=== PATIENT | male | born 1945 | race Caucasian/White ===

== ENCOUNTER 2016-12-25 22:58 | Emergency (ER) | payer MEDICARE | END 2016-12-26 02:39 | LOC: ERS 22:58 | DX: R53.1 Weakness (principal); E11.9 Type 2 diabetes mellitus without complications; I10 Essential (primary) hypertension; Z87.891 Personal history of nicotine dependence; Z86.73 Personal history of transient ischemic attack (TIA), and cerebral infarction without residual deficits; Z79.899 Other long term (current) drug therapy | CPT/HCPCS: 96360 ==

== ENCOUNTER 2019-10-19 20:01 | Inpatient (IN) | payer MEDICARE, OTHER ==
[2019-10-19 22:52] VITALS: BMI 27.1
[2019-10-19] MEDS ORDERED: Acetaminophen 325 MG TAB PO PRN (23:18)
[2019-10-19] MEDS ORDERED: Ondansetron ODT 4 MG TAB PO PRN (23:18)
[2019-10-19] MEDS ORDERED: Senokot S 8.6-50 MG TAB PO PRN (23:18)
[2019-10-19] MEDS ORDERED: Calcium Carbonate 500 MG ChewTAB PO PRN (23:18)
[2019-10-19] MEDS ORDERED: Docusate 100 MG CAP PO PRN (23:20)
[2019-10-19] MEDS ORDERED: predniSONE 20 MG TAB PO SCH (23:45)
[2019-10-19] MEDS ORDERED: Cefepime 1 GM in Sodium Chloride 0.9% 100 ML IVPB SCH (23:59)
[2019-10-19] MEDS ORDERED: Vancomycin 1.5 GRAM/300 ML BAG 1.5 GM in Premix Bag 1 BAG IVPB SCH (23:59)
[2019-10-20] MEDS: Sodium Chloride 0.9% 1,000 ML IV SCH ×2 (00:01→15:49)
--- NOTE | 2019-10-20 00:26 | HP ---
PRIMARY CARE PHYSICIAN: Dr. Shi. CHIEF COMPLAINT: Generalized weakness and deconditioning. HISTORY OF PRESENT ILLNESS: The patient is a poor historian and the majority of the H and P was taken from the [facility] via telephone. 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 The patient was recently discharged home with home heatlh one week ago after spending three weeks in the hospital. Per the patient's POA, he has been sitting in a chair at home, refusing home health for the past week. He has been soiling himself in the chair that he sits in all day with his urine and feces. He has decreased appetite. He has not been eating much. She denies any recent or known fever or chills. Denies any chest pain, heart palpitations, swelling to his lower extremities. Denies any known abdominal pain, nausea, vomiting, or diarrhea. Denies any urinary symptoms. She does report that the patient has a history of gout and he has had a gout exacerbation for the last several days contributing to his unwillingness to get up and ambulate. For those reasons, the neighbor took the patient to the ER. In the [place] [facility], the patient was found to have a fever of 102.7 with a normal blood pressure, normal pulse, normal respiratory rate, and normal oxygen saturation. He was found to have WBCs of 12.2, BUN of 45, creatinine of 1.48, and lactic acid of 2.1. Urine showed 30 protein, trace blood, and 1+ amorphous crystals. Chest x- ray was negative for any acute process. On exam, he was found to have a decubitus ulcer on his left buttock, which could be the source of the fever. The patient was given vancomycin and cefepime and 30 mL/kg of normal saline IV fluids and transferred to the [facility]. PAST MEDICAL HISTORY: 1. Hypertension. 2. Diabetes type 2, non-insulin dependent. 3. Gout. 4. 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 PAST SURGICAL HISTORY: None. SOCIAL HISTORY: The patient lives alone at home. Drinks alcohol, 4 beers, approximately 3 times a week. Last drink was greater than three weeks ago. He is a former smoker, quit greater than 10 years ago. No illicit drug use. He is retired. He will ambulate with a roller walker. FAMILY HISTORY: Noncontributory to the case. ALLERGIES: NO KNOWN DRUG ALLERGIES. MEDICATIONS: Home medications; 1. Lisinopril 20 mg p.o. daily. 2. Allopurinol 100 mg p.o. at bedtime. 3. Atenolol 100 mg p.o. daily. 4. Atorvastatin 40 mg p.o. daily. 5. Docusate 100 mg p.o. b.i.d. 6. Gabapentin 400 mg p.o. t.i.d. 7. Hydralazine 25 mg p.o. t.i.d. REVIEW OF SYSTEMS: All review of systems are negative unless otherwise stated in HPI. PHYSICAL EXAMINATION: VITAL SIGNS: Temperature 97.7, blood pressure 148/74, pulse 74, respirations 18 , and SpO2 is 99% on room air with 0/10 pain. CONSTITUTIONAL: The patient is alert and oriented to person, place, and time. Appears comfortable in bed, nontoxic in appearance. HEAD: Atraumatic and normocephalic. EYES: PERRLA. Extraocular muscles intact. NECK: Full range of motion. No cervical spinous tenderness. No JVD. No cervical adenopathy. ENT: Oropharynx clear. Uvula midline. Tacky mucous membranes. No oral lesions. RESPIRATORY/CHEST: Respirations even and nonlabored. Clear to auscultation. CARDIOVASCULAR: S1, S2 appreciated. No murmurs, rubs, or gallops. ABDOMEN: Soft, nontender. Active bowel sounds. No guarding. No rigidity. No rebound. Negative Rovsing sign negative. Negative Orr sign. No abdominal bruit auscultated. BACK: Full range of motion. No central spinous tenderness. No CVA tenderness. EXTREMITIES: Upper extremities; left upper extremity, mildly red, mild swelling , mildly painful to touch. No open lesions. Palpable radial pulses. Full range of motion. Sensation intact. Strength is weak, 4/5 on the power scale. Right upper extremity is normal. Lower extremity; left leg, decreased range of motion. Strength 4/5 on the power scale. Sensation intact. Left great toe, mild erythema, very tender to touch. Palpable pedal pulses. No swelling. SKIN: There is a 1 cm stage II pressure ulcer to the left buttock, intertriginous to the scrotum, and a stage I pressure sore to the sacrum. NEUROLOGIC: A and O x3 with slurred speech and left-sided weakness, which is baseline for the patient from his previous CVA in 2003. PSYCHIATRIC: Normal affect. A and O x3. LABS AND DIAGNOSTICS: Chest x-ray; negative for any acute process. Sodium 141, potassium 3.8, chloride 104, carbon dioxide 23, BUN 45, creatinine 1.48, glucose 109, lactic acid 2.1, total bilirubin 1.3, AST 14, ALT 14, alkaline phosphatase 92, and albumin 3.8. WBCs 12.2, hemoglobin 13.7, hematocrit 44.2, and platelets 246. UA, urine protein 30, trace blood, 1+ amorphous crystals. IMPRESSION AND PLAN: 1. Sepsis. We will admit the patient to medical floor inpatient status. Expected length of stay greater than two midnights. The patient presented to [place] [facility] with a fever of 102.7. WBCs of 12.2 and a lactic acid of 2.1. He does have a decubitus ulcer on his left buttock. We will continue broad-spectrum antibiotics, vancomycin and cefepime. The patient received 30 mL/kg of IV fluids. We will continue gentle IV hydration. Blood cultures and urine cultures are pending. We will repeat a lactic acid. We will consult Wound Care. We will recheck a CMP and a CBC in the a.m. 2. Decubitus ulcer. The patient has stage II on the left buttock. We will consult Wound Care therapy. 3. Acute kidney injury. The patient presented with a creatinine of 1.48, baseline appears to be around 1. We will hold MARIAELENA inhibitors, give IV fluid hydration, recheck level in the a.m. 4. Gout flare. The patient has a history of gout, takes allopurinol. Currently , he is having a gout flare to his left great toe and left upper extremity. We will start the patient on high-dose prednisone for 5 days. 5. Diabetes type 2, non-insulin dependent. The patient presented with a blood sugar of 109. We will place the patient on moderate sliding scale. Accu-Cheks a.c. and at bedtime. 6. Hypertension. The patient presented with a mildly elevated blood pressure. We will hold the patient's home dose of MARIAELENA inhibitor. We will restart the patient 's atenolol and hydralazine. 7. Alcohol abuse. The patient reports drinking 4 to 5 beers three times a week. Last drink was over 3 weeks ago according to his POA. At this time, no concern for any withdrawals. We will just continue to monitor. We will community health counselor on alcohol cessation. 8. Physical deconditioning. Per the POA, the patient has been refusing home health since being discharged from the hospital over the past week. He spent over 3 weeks in the hospital. He has been sitting in his chair, refusing to ambulate and soiling himself. His gout flare has contributed to this. She is very concerned about his deconditioned status and he lives alone and she does not feel like he is going to be safe to go home until he gets his strength back. We will consult Physical Therapy, Occupational Therapy. The patient will most likely need rehab or higher level of care on discharge. We will consult Case Management. 9. Heparin for deep venous thrombosis prophylaxis. Pepcid for gastrointestinal prophylaxis. 10. The patient is a DNR, confirmed by Ann Blue, his POA via phone. Her number is [phone]. 11. Discussed the case with Dr. Moreland. Job ID: [id number] MTDD
[2019-10-20 00:31] LABS: Lactic Acid 0.9 mmol/L (0.5-2.2)
[2019-10-20 05:50] LABS: #Lymphocytes 1.1 thou/uL (1.20-3.40); #Monocytes 0.4 thou/uL (0.11-0.59); %Basophils 0.3 % (0.0-1.0); %Eosinophils 0.3 % (0.0-10.0); %Lymphocytes 10.7 % (21.0-51.0); %Monocytes 3.6 % (0.0-10.0); %Neutrophils 85.1 % (42.0-75.0); Hemoglobin 12.7 g/dL (14.0-18.0); Mean Corpuscular HGB CONC 32.4 g/dL (32.0-36.0); Mean Corpuscular Hemoglobin 30.5 pg (27.0-31.0); Mean Corpuscular Volume 94.3 fL (78.0-98.0); Mean Platelet Volume 7.8 fL (7.4-10.4); Platelet Count 214 thou/uL (130-400); RBC Distribution Width 12.8 % (11.5-14.5); Red Blood Cell (RBC) Count 4.15 mill/uL (4.70-6.10); White Blood Cell (WBC) Count 10.6 thou/uL (4.8-10.8)
[2019-10-20 06:10] LABS: Anion Gap 13 mmol/L (10-20); BUN (Urea Nitrogen) 40 mg/dL (8.4-25.7); Calc. Creatinine Clearance 62 mL/min (70-130); Calcium 8.8 mg/dL (7.8-10.44); Carbon Dioxide 21 mmol/L (23-31); Chloride 110 mmol/L (98-107); Estimated GFR-MDRD 63; Glucose 144 mg/dL (83-110); Potassium 3.5 mmol/L (3.5-5.1); Sodium 140 mmol/L (136-145)
[2019-10-20] MEDS ORDERED: Vancomycin HCl 750 MG in Sodium Chloride 0.9% 250 ML 250 ML IVPB SCH (09:00)
[2019-10-20] MEDS: Famotidine 20 MG TAB PO SCH (09:18)
[2019-10-20] MEDS: hydrALAZINE 25 MG TAB PO SCH ×3 (09:18→20:29)
[2019-10-20] MEDS: predniSONE 20 MG TAB PO SCH (09:18)
[2019-10-20] MEDS: Gabapentin 400 MG CAP PO SCH ×3 (09:19→20:29)
[2019-10-20] MEDS: Vancomycin 1 GM in Premix Bag 1 BAG IVPB SCH (09:19)
[2019-10-20] MEDS: Heparin 5,000 UNITS/ML VIAL SC SCH ×2 (09:19→20:30)
[2019-10-20] MEDS: Atorvastatin Calcium 40 MG TAB PO SCH (09:19)
[2019-10-20] MEDS: HYDROcodone/Acetaminophen 5/325 mg Tablet PO PRN ×2 (12:02→20:29)
[2019-10-20] MEDS: Atenolol 50 MG TAB PO SCH (12:04)
[2019-10-20] MEDS ORDERED: Cefepime 1 GM in Sodium Chloride 0.9% 100 ML IVPB SCH (15:00)
--- NOTE | 2019-10-20 17:23 | PDOC.HOSPP ---
- Subjective Encounter Date: 10/20/19 Encounter Time: 08:00 Subjective: no overnight events. this morning, complains of pain in the lower extremities right > left that is chronic. Otherwise no complaints. - Objective Vital Signs & Weight: Vital Signs (12 hours) Temp Pulse Resp BP BP Pulse Ox 10/20/19 12:04 61 132/78 10/20/19 09:18 61 132/78 10/20/19 08:00 96 10/20/19 07:21 97.6 F 61 20 132/78 97 Weight Admit Weight 173 lb 2 oz Weight 173 lb 2 oz I&O: 10/19/19 10/20/19 10/21/19 06:59 06:59 06:59 Intake Total 850 Output Total 1300 Balance -450 Result Diagrams: 10/20/19 05:35 10/20/19 05:35 Hospitalist ROS - Review of Systems Constitutional: denies: chills, sweats Cardiovascular: denies: chest pain, palpitations, orthopnea Gastrointestinal: denies: nausea, vomiting, abdominal pain - Medication Medications: Active Medications Generic Name Dose Route Start Last Admin Trade Name Freq PRN Reason Stop Dose Admin Hydrocodone Bitart/Acetaminophen 1 tab 10/19/19 23:18 10/20/19 12:02 [place] 5/325 PO 1 tab Q4H PRN Administration Moderate Pain (4-6) Atenolol 100 mg 10/20/19 09:00 10/20/19 12:04 Tenormin PO 100 mg DAILY SAULO Administration Atorvastatin Calcium 40 mg 10/20/19 09:00 10/20/19 09:19 Lipitor PO 40 mg DAILY SAULO Administration Famotidine 20 mg 10/20/19 09:00 10/20/19 09:18 Pepcid PO 20 mg DAILY SAULO Administration Gabapentin 400 mg 10/20/19 09:00 10/20/19 15:49 Neurontin PO 400 mg TID SAULO Administration Heparin Sodium (Porcine) 5,000 units 10/20/19 09:00 10/20/19 09:19 Heparin SC 5,000 units BID SAULO Administration Hydralazine HCl 25 mg 10/20/19 09:00 10/20/19 15:49 Apresoline PO 25 mg TID SAULO Administration Sodium Chloride 1,000 mls @ 75 mls/hr 10/19/19 23:30 10/20/19 15:49 Normal Saline 0.9% IV 1,000 mls .[id number] SAULO Administration Cefepime HCl 1 gm/ Sodium 100 mls @ 200 mls/hr 10/20/19 15:00 10/20/19 15:49 Chloride IVPB 100 mls 1500 SAULO Administration Vancomycin HCl 1 gm/ Device 200 mls @ 200 mls/hr 10/20/19 09:00 10/20/19 09: 19 IVPB 200 mls DAILY SAULO Administration Prednisone 40 mg 10/20/19 08:00 10/20/19 09:18 Prednisone PO 10/23/19 09:00 40 mg QAM-WM SAULO Administration - Exam General Appearance: NAD, awake alert Neck: no JVD Heart: RRR, no murmur, no gallops, no rubs Respiratory: CTAB, no wheezes, no rales, no ronchi Gastrointestinal: soft, non-tender, non-distended, normal bowel sounds Extremities: 1+ LE edema Extremities - other findings: moderate tenderness left first toe, tenderness and erythema right crowder Hosp A/P - Plan #generalized weakness -has been immobile for the past month -infectious, DVT, deconditining, dehydration possible etiologies qSOFA 0/3 continue vancomycin, cefepime pending infectious workup lower extremity U/S procalcitonin #noninfected decubitus ulcer #Acute kidney injury (resolved) # Gout flare. left great toe. Continue steroids #Diabetes type 2, non-insulin dependent. Well controlled # Hypertension. restart home regimen.
[2019-10-20] MEDS ORDERED: Acetaminophen 500 MG TAB PO PRN (17:39)
[2019-10-20] MEDS ORDERED: Vancomycin 1 GM in Premix Bag 1 BAG IVPB SCH (18:00)
--- NOTE | 2019-10-20 18:49 | ULT ---
EXAM: Bilateral lower extremity venous Doppler HISTORY: Bilateral lower extremity swelling/edema. Immobility. FINDINGS: Grayscale, color-flow, Doppler evaluation, spectral analysis of the bilateral lower extremity venous structures is performed with 2-D imaging. The bilateral common femoral, superficial femoral, popliteal, posterior tibial, proximal greater saphenous and profunda femoral veins are imaged. There is normal luminal compressibility, flow, and augmentation in the visualized deep venous structu res of the bilateral lower extremities. IMPRESSION: No evidence of a deep vein thrombosis in the visualized deep venous structures bilateral lower extrem ities.
[2019-10-20] MEDS: Allopurinol 100 MG TAB PO SCH (20:29)
[2019-10-21] MEDS: Sodium Chloride 0.9% 1,000 ML IV SCH ×4 (04:07→23:35)
[2019-10-21 06:22] LABS: #Basophils 0.1 thou/uL (0.0-0.2); #Lymphocytes 1.6 thou/uL (1.20-3.40); #Monocytes 0.8 thou/uL (0.11-0.59); %Basophils 0.5 % (0.0-1.0); %Eosinophils 0.3 % (0.0-10.0); %Lymphocytes 15.4 % (21.0-51.0); %Monocytes 7.7 % (0.0-10.0); %Neutrophils 76.1 % (42.0-75.0); Hemoglobin 11.5 g/dL (14.0-18.0); Mean Corpuscular HGB CONC 31.9 g/dL (32.0-36.0); Mean Corpuscular Hemoglobin 30.3 pg (27.0-31.0); Mean Corpuscular Volume 95.2 fL (78.0-98.0); Mean Platelet Volume 8.7 fL (7.4-10.4); Platelet Count 220 thou/uL (130-400); RBC Distribution Width 12.6 % (11.5-14.5); Red Blood Cell (RBC) Count 3.77 mill/uL (4.70-6.10); White Blood Cell (WBC) Count 10.5 thou/uL (4.8-10.8)
[2019-10-21 06:49] LABS: Anion Gap 11 mmol/L (10-20); BUN (Urea Nitrogen) 52 mg/dL (8.4-25.7); Calc. Creatinine Clearance 57 mL/min (70-130); Calcium 8.7 mg/dL (7.8-10.44); Carbon Dioxide 21 mmol/L (23-31); Chloride 113 mmol/L (98-107); Estimated GFR-MDRD 58; Glucose 118 mg/dL (83-110); Magnesium 1.7 mg/dL (1.6-2.6); Potassium 3.4 mmol/L (3.5-5.1); Sodium 142 mmol/L (136-145)
[2019-10-21] MEDS: predniSONE 20 MG TAB PO SCH (08:00)
[2019-10-21] MEDS: Atenolol 50 MG TAB PO SCH (08:00)
[2019-10-21] MEDS: Lisinopril 20 MG TAB PO SCH (08:00)
[2019-10-21] MEDS: Famotidine 20 MG TAB PO SCH (08:00)
[2019-10-21] MEDS: Atorvastatin Calcium 40 MG TAB PO SCH (08:01)
[2019-10-21] MEDS: hydrALAZINE 25 MG TAB PO SCH ×3 (08:01→20:51)
[2019-10-21] MEDS: Gabapentin 400 MG CAP PO SCH ×3 (08:02→20:50)
[2019-10-21] MEDS: Heparin 5,000 UNITS/ML VIAL SC SCH ×2 (08:02→20:50)
[2019-10-21] MEDS: HYDROcodone/Acetaminophen 5/325 mg Tablet PO PRN (08:02)
[2019-10-21] MEDS ORDERED: Vancomycin 1.5 GRAM/300 ML BAG 1.5 GM in Premix Bag 1 BAG IVPB SCH (09:00)
[2019-10-21 09:12] LABS: Vancomycin, Trough 7.5 ug/mL
[2019-10-21] MEDS: Vancomycin 1 GM in Premix Bag 1 BAG IVPB SCH (10:34)
[2019-10-21 14:47] LABS: SARS-CoV-2 MS2 Positive; SARS-CoV-2 N Gene Negative; SARS-CoV-2 S Gene Negative; SARS-CoV-2 by NAA Not Detected (NotDetected); SARS-CoV-2 orf1ab Negative
[2019-10-21] MEDS ORDERED: Electrolyte Replacement Protoc 1 EACH EACH FS SCH (17:45)
--- NOTE | 2019-10-21 17:46 | PDOC.HOSPP ---
- Subjective Encounter Date: 10/21/19 Encounter Time: 08:00 Subjective: no overnight events. this morning, feels more energized and has no complaints with exception of lower extremity pain that has improved. - Objective Vital Signs & Weight: Vital Signs (12 hours) Temp Pulse Resp BP BP Pulse Ox 10/21/19 15:08 51 L 148/72 H 10/21/19 08:00 97.5 F L 51 L 16 137/71 100 Weight Admit Weight 173 lb 2 oz Weight 173 lb 2 oz I&O: 10/20/19 10/21/19 10/22/19 06:59 06:59 06:59 Intake Total 850 1750 Output Total 1300 1000 Balance -450 750 Result Diagrams: 10/21/19 05:51 10/21/19 05:51 Hospitalist ROS - Review of Systems Constitutional: denies: chills, sweats Respiratory: denies: cough, dry, shortness of breath Cardiovascular: denies: chest pain, palpitations Gastrointestinal: denies: nausea, vomiting, abdominal pain, diarrhea, melena, hematochezia Genitourinary: denies: dysuria, frequency, hematuria Neurological: reports: weakness (nonfocal, improving) - Medication Medications: Active Medications Generic Name Dose Route Start Last Admin Trade Name Freq PRN Reason Stop Dose Admin Hydrocodone Bitart/Acetaminophen 1 tab 10/19/19 23:18 10/21/19 08:02 [place] 5/325 PO 1 tab Q4H PRN Administration Moderate Pain (4-6) Allopurinol 100 mg 10/20/19 21:00 10/20/19 20:29 Zyloprim PO 100 mg 2100 SAULO Administration Atenolol 100 mg 10/20/19 09:00 10/21/19 08:00 Tenormin PO 100 mg DAILY SAULO Administration Atorvastatin Calcium 40 mg 10/20/19 09:00 10/21/19 08:01 Lipitor PO 40 mg DAILY SAULO Administration Docusate Sodium 100 mg 10/19/19 23:20 10/20/19 20:29 Colace PO 100 mg BIDPRN PRN Administration Constipation Famotidine 20 mg 10/20/19 09:00 10/21/19 08:00 Pepcid PO 20 mg DAILY SAULO Administration Gabapentin 400 mg 10/20/19 09:00 10/21/19 15:07 Neurontin PO 400 mg TID SAULO Administration Heparin Sodium (Porcine) 5,000 units 10/20/19 09:00 10/21/19 08:02 Heparin SC 5,000 units BID SALUO Administration Hydralazine HCl 25 mg 10/20/19 09:00 10/21/19 15:08 Apresoline PO 25 mg TID SAULO Administration Lisinopril 20 mg 10/21/19 09:00 10/21/19 08:00 Zestril PO 20 mg DAILY SAULO Administration Prednisone 40 mg 10/20/19 08:00 10/21/19 08:00 Prednisone PO 10/23/19 09:00 40 mg QAM-WM SAULO Administration - Exam General Appearance: NAD, awake alert Neck: no JVD Heart: no murmur, no gallops, no rubs Heart - other findings: bradycardic Gastrointestinal: soft, non-tender, non-distended, normal bowel sounds Extremities: 1+ LE edema Neurological - other findings: dysarhtria, left sided weakness (chronic) Psychiatric: normal affect, normal behavior, A&O x 3 Hosp A/P - Plan Consults: Hospice #generalized weakness #fever -improved -infectious workup -ve; procalcitonin 0.5; unlikely bacterial infection; stopped ABx -LE doppler -ve for DVT -increased BUN despite being on fluids; HgB lower; repeat CBC if HgB downtrending take FOBT -may have been viral syndrome vs. symptomatic bradycardia #bradycardia -per patient, has had slow heart rate for years -initial tachycardia may have been due to dehydration/anemia -however, may be related to symptoms; HR 50s -repeat EKG showing LBBB (old) with no AV conduction block; no other changes. -troponin; echocardio -reduce atenolol to 50mg PO daily - continue to monitor #noninfected stage II decubitus ulcer -wound management #Acute kidney injury (resolved) # Gout flare. left great toe. Continue steroids #Diabetes type 2, non-insulin dependent. Well controlled # Hypertension. restart home regimen.
[2019-10-21 19:08] LABS: CKMB 1.7 ng/mL (0-6.6)
[2019-10-21] MEDS: Allopurinol 100 MG TAB PO SCH (20:50)
--- NOTE | 2019-10-22 01:25 | PDOC.EVN ---
Event Note - Event Note Event Note: Notified by RN, patient with further drop in HR, per patient lower than it usually is. Most recent HR was 40. BP remains stable. Patient asymptomatic. In light of cardiac work-up i.e. echo, troponin being trended, Dr. Moreland advised transfer to [facility] for continuous cardiac monitoring. Repeat EKG to be done.
[2019-10-22 01:56] LABS: #Lymphocytes 1.6 thou/uL (1.20-3.40); #Monocytes 0.5 thou/uL (0.11-0.59); %Eosinophils 0.2 % (0.0-10.0); %Lymphocytes 19.1 % (21.0-51.0); %Monocytes 6.5 % (0.0-10.0); %Neutrophils 74.2 % (42.0-75.0); Hemoglobin 11.7 g/dL (14.0-18.0); Mean Corpuscular HGB CONC 32.4 g/dL (32.0-36.0); Mean Corpuscular Hemoglobin 30.7 pg (27.0-31.0); Mean Corpuscular Volume 94.8 fL (78.0-98.0); Mean Platelet Volume 8.7 fL (7.4-10.4); Platelet Count 220 thou/uL (130-400); RBC Distribution Width 12.9 % (11.5-14.5); Red Blood Cell (RBC) Count 3.82 mill/uL (4.70-6.10); White Blood Cell (WBC) Count 8.1 thou/uL (4.8-10.8)
[2019-10-22 02:22] LABS: Anion Gap 13 mmol/L (10-20); BUN (Urea Nitrogen) 46 mg/dL (8.4-25.7); Calc. Creatinine Clearance 68 mL/min (70-130); Calcium 8.4 mg/dL (7.8-10.44); Carbon Dioxide 20 mmol/L (23-31); Chloride 113 mmol/L (98-107); Estimated GFR-MDRD 70; Glucose 112 mg/dL (83-110); Potassium 3.5 mmol/L (3.5-5.1); Sodium 142 mmol/L (136-145)
[2019-10-22 02:46] LABS: CKMB 1.5 ng/mL (0-6.6)
[2019-10-22] MEDS: Sodium Chloride 0.9% 1,000 ML IV SCH ×2 (04:11→17:11)
[2019-10-22] MEDS ORDERED: Potassium Chloride 20 MEQ TAB PO SCH (06:30)
[2019-10-22] MEDS: Atenolol 25 MG TAB PO SCH (10:45)
[2019-10-22] MEDS: Famotidine 20 MG TAB PO SCH (10:45)
[2019-10-22] MEDS: predniSONE 20 MG TAB PO SCH (10:46)
[2019-10-22] MEDS: Lisinopril 20 MG TAB PO SCH (10:46)
[2019-10-22] MEDS: Atorvastatin Calcium 40 MG TAB PO SCH (10:46)
[2019-10-22] MEDS: Gabapentin 400 MG CAP PO SCH ×3 (10:46→20:53)
[2019-10-22] MEDS: hydrALAZINE 25 MG TAB PO SCH ×3 (10:46→20:53)
[2019-10-22] MEDS: Heparin 5,000 UNITS/ML VIAL SC SCH ×2 (13:10→20:53)
--- NOTE | 2019-10-22 20:09 | PDOC.HOSPP ---
- Subjective Encounter Date: 10/22/19 Encounter Time: 09:00 Subjective: overnight, transfered to telemetry due to bradycardia, though endorsed having asymptomatic bradycardia for years. This morning, feeling well, toe pain improved. pending rehab placement - Objective Vital Signs & Weight: Vital Signs (12 hours) Temp Pulse Pulse Pulse Resp BP BP 10/22/19 18:59 98 F 54 L 18 10/22/19 16:22 97.6 F 60 20 10/22/19 11:50 57 L 59 L 178/81 H 170/74 H 10/22/19 10:51 98.1 F 57 L 18 BP Pulse Ox 10/22/19 18:59 165/82 H 97 10/22/19 16:22 158/70 H 99 10/22/19 11:50 10/22/19 10:51 162/74 H 98 Weight Admit Weight 173 lb 2 oz Weight 173 lb 2 oz I&O: 10/21/19 10/22/19 10/23/19 06:59 06:59 06:59 Intake Total 1750 Output Total 1000 800 Balance 750 -800 Result Diagrams: 10/22/19 01:43 10/22/19 01:43 Hospitalist ROS - Review of Systems Constitutional: denies: chills, sweats Respiratory: denies: cough, dry, shortness of breath, SOB with excertion, pleuritic pain, sputum Cardiovascular: denies: chest pain, palpitations, orthopnea Gastrointestinal: denies: nausea, vomiting, abdominal pain, diarrhea Genitourinary: denies: dysuria, frequency, hematuria - Medication Medications: Active Medications Generic Name Dose Route Start Last Admin Trade Name Freq PRN Reason Stop Dose Admin Hydrocodone Bitart/Acetaminophen 1 tab 10/19/19 23:18 10/21/19 08:02 [place] 5/325 PO 1 tab Q4H PRN Administration Moderate Pain (4-6) Allopurinol 100 mg 10/20/19 21:00 10/21/19 20:50 Zyloprim PO 100 mg 2100 SAULO Administration Atenolol 50 mg 10/22/19 09:00 10/22/19 10:45 Tenormin PO 50 mg DAILY SAULO Administration Atorvastatin Calcium 40 mg 10/20/19 09:00 10/22/19 10:46 Lipitor PO 40 mg DAILY SAULO Administration Docusate Sodium 100 mg 10/19/19 23:20 10/20/19 20:29 Colace PO 100 mg BIDPRN PRN Administration Constipation Famotidine 20 mg 10/20/19 09:00 10/22/19 10:45 Pepcid PO 20 mg DAILY SAULO Administration Gabapentin 400 mg 10/20/19 09:00 10/22/19 17:13 Neurontin PO 400 mg TID SAULO Administration Heparin Sodium (Porcine) 5,000 units 10/20/19 09:00 10/22/19 13:10 Heparin SC 5,000 units BID SAULO Administration Hydralazine HCl 25 mg 10/20/19 09:00 10/22/19 17:13 Apresoline PO 25 mg TID SAULO Administration Sodium Chloride 1,000 mls @ 100 mls/hr 10/21/19 17:35 10/22/19 17:11 Normal Saline 0.9% IV 1,000 mls .Q10H SAULO Administration Lisinopril 20 mg 10/21/19 09:00 10/22/19 10:46 Zestril PO 20 mg DAILY SAULO Administration Prednisone 40 mg 10/20/19 08:00 10/22/19 10:46 Prednisone PO 10/23/19 09:00 40 mg QAM-WM SAULO Administration - Exam General Appearance: NAD, awake alert ENT: normocephalic atraumatic, moist mucosa Neck: no JVD Heart: no murmur, no gallops, no rubs Heart - other findings: bradycardia Respiratory: CTAB, no wheezes, no rales, no ronchi Gastrointestinal: soft, non-tender, non-distended, normal bowel sounds Extremities: no edema, 1+ LE edema Neurological - other findings: baseline dysarthria Psychiatric: normal affect, normal behavior, A&O x 3 Hosp A/P - Plan #generalized weakness #fever -at baseline -infectious workup -ve; procalcitonin 0.5; unlikely bacterial infection; stopped ABx (10/20) -LE doppler -ve for DVT #bradycardia -per patient, has had slow heart rate for years -initial tachycardia may have been due to dehydration/anemia -however, may be related to symptoms; HR 50s -repeat EKG showing LBBB (old) with no AV conduction block; no other changes. -troponin stable, echo results pending -reduce atenolol to 50mg PO daily (10/21) #noninfected stage II decubitus ulcer -wound management #Acute kidney injury (resolved) # Gout flare. left great toe. Continue steroids #Diabetes type 2, non-insulin dependent. Well controlled # Hypertension. continue home regimen.
[2019-10-22] MEDS: Allopurinol 100 MG TAB PO SCH (20:53)
[2019-10-23] MEDS: Atenolol 25 MG TAB PO SCH (08:49)
[2019-10-23] MEDS: predniSONE 20 MG TAB PO SCH (08:49)
[2019-10-23] MEDS: hydrALAZINE 25 MG TAB PO SCH ×3 (08:50→21:12)
[2019-10-23] MEDS: Atorvastatin Calcium 40 MG TAB PO SCH (08:50)
[2019-10-23] MEDS: Lisinopril 20 MG TAB PO SCH (08:50)
[2019-10-23] MEDS: Heparin 5,000 UNITS/ML VIAL SC SCH ×2 (08:50→21:12)
[2019-10-23] MEDS: Sodium Chloride 0.9% 1,000 ML IV SCH ×3 (10:11→16:27)
[2019-10-23] MEDS: Gabapentin 400 MG CAP PO SCH ×3 (10:11→21:12)
[2019-10-23] MEDS: Famotidine 20 MG TAB PO SCH (10:11)
--- NOTE | 2019-10-23 14:33 | PDOC.HOSPP ---
- Subjective Encounter Date: 10/23/19 Encounter Time: 07:00 Subjective: Pt seen for followup for physical deconditioning. Denies chest pain, shortness of breath, fevers or chills. - Objective Vital Signs & Weight: Vital Signs (12 hours) Temp Pulse Resp BP Pulse Ox 10/23/19 13:02 166/77 H 10/23/19 11:16 53 L 187/80 H 10/23/19 08:50 56 L 10/23/19 08:49 56 L 10/23/19 08:36 97.7 F 56 L 16 179/79 H 98 10/23/19 03:34 97.4 F L 50 L 16 158/74 H 98 Weight Admit Weight 173 lb 2 oz Weight 173 lb 2 oz I&O: 10/22/19 10/23/19 10/24/19 06:59 06:59 06:59 Intake Total 1490 Output Total 800 Balance -800 1490 Result Diagrams: 10/22/19 01:43 10/22/19 01:43 Additional Labs: Labs and MARs reviewed by fl Hospitalist ROS - Review of Systems Constitutional: denies: fever, chills, sweats, weakness, malaise Cardiovascular: denies: chest pain, palpitations, orthopnea, paroxysmal noc. dyspnea, edema, light headedness - Medication Medications: Active Medications Generic Name Dose Route Start Last Admin Trade Name Freq PRN Reason Stop Dose Admin Hydrocodone Bitart/Acetaminophen 1 tab 10/19/19 23:18 10/21/19 08:02 [employer] 5/325 PO 1 tab Q4H PRN Administration Moderate Pain (4-6) Allopurinol 100 mg 10/20/19 21:00 10/22/19 20:53 Zyloprim PO 100 mg 2100 SAULO Administration Atenolol 50 mg 10/22/19 09:00 10/23/19 08:49 Tenormin PO 50 mg DAILY SAULO Administration Atorvastatin Calcium 40 mg 10/20/19 09:00 10/23/19 08:50 Lipitor PO 40 mg DAILY SAULO Administration Docusate Sodium 100 mg 10/19/19 23:20 10/20/19 20:29 Colace PO 100 mg BIDPRN PRN Administration Constipation Famotidine 20 mg 10/20/19 09:00 10/23/19 10:11 Pepcid PO Not Given DAILY SAULO Gabapentin 400 mg 10/20/19 09:00 10/23/19 10:11 Neurontin PO 400 mg TID SAULO Administration Heparin Sodium (Porcine) 5,000 units 10/20/19 09:00 10/23/19 08:50 Heparin SC 5,000 units BID SAULO Administration Hydralazine HCl 25 mg 10/20/19 09:00 10/23/19 08:50 Apresoline PO 25 mg TID SAULO Administration Sodium Chloride 1,000 mls @ 100 mls/hr 10/21/19 17:35 10/23/19 10:11 Normal Saline 0.9% IV 1,000 mls .Q10H SAULO Administration Lisinopril 20 mg 10/21/19 09:00 10/23/19 08:50 Zestril PO 20 mg DAILY SAULO Administration - Exam General Appearance: awake alert Eye: anicteric sclera ENT: moist mucosa Neck: supple Heart: RRR Respiratory: CTAB Gastrointestinal: soft, non-tender Extremities: no cyanosis Psychiatric: normal affect, normal behavior Hosp A/P - Plan - Plan #physical deconditioning -PT/OT #bradycardia -Improved #noninfected stage II decubitus ulcer -wound management # Gout flare. left great toe. -Continue steroids #Diabetes type 2, non-insulin dependent. Well controlled # Hypertension -increase hydralazine to 50 mg ID #Acute kidney injury -resolved #fever -resolved, ? due to viral illness Rehab eval pending
[2019-10-23] MEDS: Allopurinol 100 MG TAB PO SCH (21:12)
[2019-10-24] MEDS: Sodium Chloride 0.9% 1,000 ML IV SCH ×2 (03:39→14:39)
[2019-10-24] MEDS: Atenolol 25 MG TAB PO SCH (09:03)
[2019-10-24] MEDS: Lisinopril 20 MG TAB PO SCH (09:03)
[2019-10-24] MEDS: Famotidine 20 MG TAB PO SCH (09:03)
[2019-10-24] MEDS: hydrALAZINE 25 MG TAB PO SCH ×4 (09:03→20:48)
[2019-10-24] MEDS: Atorvastatin Calcium 40 MG TAB PO SCH (09:04)
[2019-10-24] MEDS: Heparin 5,000 UNITS/ML VIAL SC SCH ×2 (09:04→20:49)
[2019-10-24] MEDS: Gabapentin 400 MG CAP PO SCH ×3 (09:04→20:49)
--- NOTE | 2019-10-24 14:58 | PDOC.HOSPP ---
- Subjective Encounter Date: 10/24/19 Encounter Time: 07:30 Subjective: Patient was seen for follow-up for physical deconditioning. He denies any chest pain, shortness of breath, fevers or chills. He denies any nausea or vomiting. - Objective Vital Signs & Weight: Vital Signs (12 hours) Temp Pulse Resp BP BP Pulse Ox 10/24/19 14:38 51 L 10/24/19 12:00 97.8 F 51 L 16 159/74 H 97 10/24/19 09:03 54 L 178/80 H 10/24/19 08:00 97.4 F L 54 L 16 179/80 H 97 10/24/19 03:39 98.1 F 48 L 16 174/80 H 96 Weight Admit Weight 173 lb 2 oz Weight 173 lb 2 oz I&O: 10/23/19 10/24/19 10/25/19 06:59 06:59 06:59 Intake Total 3090 Output Total 800 475 Balance -800 2615 Result Diagrams: 10/22/19 01:43 10/22/19 01:43 Additional Labs: Labs iand MARs were reviewed by me. Hospitalist ROS - Review of Systems Cardiovascular: denies: chest pain, palpitations, orthopnea, paroxysmal noc. dyspnea, edema, light headedness Gastrointestinal: denies: nausea, vomiting, abdominal pain, diarrhea, constipation, melena, hematochezia Skin: denies: rash, lesions, kiesha, bruising - Medication Medications: Active Medications Generic Name Dose Route Start Last Admin Trade Name Freq PRN Reason Stop Dose Admin Hydrocodone Bitart/Acetaminophen 1 tab 10/19/19 23:18 10/21/19 08:02 Honeydew 5/325 PO 1 tab Q4H PRN Administration Moderate Pain (4-6) Allopurinol 100 mg 10/20/19 21:00 10/23/19 21:12 Zyloprim PO 100 mg 2100 SAULO Administration Atenolol 50 mg 10/22/19 09:00 10/24/19 09:03 Tenormin PO 50 mg DAILY SAULO Administration Atorvastatin Calcium 40 mg 10/20/19 09:00 10/24/19 09:04 Lipitor PO 40 mg DAILY SAULO Administration Docusate Sodium 100 mg 10/19/19 23:20 10/20/19 20:29 Colace PO 100 mg BIDPRN PRN Administration Constipation Famotidine 20 mg 10/20/19 09:00 10/24/19 09:03 Pepcid PO 20 mg DAILY SAULO Administration Gabapentin 400 mg 10/20/19 09:00 10/24/19 14:38 Neurontin PO 400 mg TID SAULO Administration Heparin Sodium (Porcine) 5,000 units 10/20/19 09:00 10/24/19 09:04 Heparin SC 5,000 units BID SAULO Administration Hydralazine HCl 50 mg 10/23/19 15:00 10/24/19 14:38 Apresoline PO 50 mg TID SAULO Administration Sodium Chloride 1,000 mls @ 100 mls/hr 10/21/19 17:35 10/24/19 14:39 Normal Saline 0.9% IV 1,000 mls .Q10H SAULO Administration Lisinopril 20 mg 10/21/19 09:00 10/24/19 09:03 Zestril PO 20 mg DAILY SAULO Administration Senna/Docusate Sodium 2 tab 10/19/19 23:18 10/24/19 14:42 Senokot S PO 2 tab BIDPRN PRN Administration Constipation - Exam General Appearance: awake alert Eye: anicteric sclera ENT: moist mucosa Neck: supple Heart: RRR Respiratory: CTAB Gastrointestinal: soft, non-tender Skin: no rashes Musculoskeletal: no muscle wasting Psychiatric: normal affect, normal behavior Hosp A/P - Plan - Plan #physical deconditioning -PT/OT -will likely need inpt rehab #bradycardia -Improved #noninfected stage II decubitus ulcer -wound management following # Gout flare. left great toe. -resolved #Diabetes type 2, non-insulin dependent. Well controlled # Hypertension -increase hydralazine to 75 mg TID #Acute kidney injury -resolved #fever -resolved, ? due to viral illness
[2019-10-24] MEDS: Allopurinol 100 MG TAB PO SCH (20:47)
[2019-10-25] MEDS: Sodium Chloride 0.9% 1,000 ML IV SCH ×2 (00:41→13:54)
[2019-10-25 08:17] VITALS: TEMP 98.3
[2019-10-25] MEDS: Atorvastatin Calcium 40 MG TAB PO SCH (08:42)
[2019-10-25] MEDS: Atenolol 25 MG TAB PO SCH (08:42)
[2019-10-25] MEDS: Gabapentin 400 MG CAP PO SCH ×2 (08:42→15:48)
[2019-10-25] MEDS: Famotidine 20 MG TAB PO SCH (08:44)
[2019-10-25] MEDS: hydrALAZINE 25 MG TAB PO SCH ×2 (08:44→15:48)
[2019-10-25] MEDS: Heparin 5,000 UNITS/ML VIAL SC SCH (08:45)
[2019-10-25] MEDS: Lisinopril 20 MG TAB PO SCH (08:45)
--- NOTE | 2019-10-25 14:49 | DIS ---
DATE OF ADMISSION: 10/19/2019 DATE OF DISCHARGE: 10/25/2019 PRIMARY CARE PROVIDER: Dustin Serna MD DISCHARGE DIAGNOSES: 1. Sepsis, most likely secondary to viral etiology. 2. Acute kidney injury. 3. Gout flare. 4. Physical deconditioning. 5. Bradycardia. 6. Hypokalemia. 7. COVID-19 infection ruled out. CONDITION OF PATIENT ON THE DAY OF DISCHARGE: Stable. I assessed Mr. Dickens on the day of discharge. He denies any chest pain or shortness of breath. Vital signs are stable. S1 and S2 are heard, regular. Lungs are clear to auscultation bilaterally. DISCHARGE MEDICATIONS: 1. Lipitor 40 mg daily. 2. Gabapentin 400 mg 3 times a day. 3. Lisinopril 20 mg daily. 4. Allopurinol 100 mg daily. 5. Atenolol 50 mg daily, dose decreased during this hospitalization. 6. Hydralazine dose increased to 75 mg 3 times a day. 7. Tylenol Extra Strength p.r.n. 8. Docusate p.r.n. HOSPITAL COURSE: Mr. Dickens is a pleasant 74-year-old gentleman who was admitted to [facility] on October 19, 2019 for sepsis, most likely secondary to viral etiology. He was treated with antibiotics, subsequently discontinued. Final blood cultures and urine culture were negative. He was bradycardic. Beta-lynne dose was decreased, and hydralazine dose was increased. He was also physically deconditioned. He was evaluated for inpatient rehab and has been accepted for inpatient rehab. He is being discharged to [facility]. Many thanks for allowing me to participate in your patient's care. Please feel free to contact me with any questions or concerns. ACTIVITY: As tolerated. DIET: Heart healthy. POST-ACUTE CARE FOLLOWUP: With primary care provider in 3 days. Total amount of time spent coordinating this discharge: 32 minutes. DISCHARGE DESTINATION: [facility]. Please note that the patient had a 2D echocardiogram during this hospitalization, which showed left ventricular ejection fraction of 55% to 60%, mild concentric LVH, no evidence of mitral valve stenosis, trace mitral regurgitation, and structurally normal aortic valve with no significant stenosis or regurgitation. Job ID: [id number]
[2019-10-25 17:37] VITALS: BP 177/77
--- NOTE | 2019-10-27 06:49 | PQF ---
CLINICAL DOCUMENTATION CLARIFICATION FORM: Dear : Charlie Allen Date / Time: 10/27/19 3755 Please exercise your independent, professional judgment in responding to the clarification form. Clinical indicators are provided on the bottom of this form for your review Please check appropriate box(es): Pressure Ulcer Stage: Left Buttock [ ] Stage 2 [ ] Stage 3 developed progression from Stage 2 X Pressure ulcer, L buttock, stage 3 at the time of admission Physician Signature: Date/Time: For continuity of documentation, please document condition throughout progress notes and discharge summary. Thank You. To be completed by CDI/Coding staff for physician review: Present Clinical Indicators - Signs / Symptoms / Labs Results and Location in Medical Record [X] Left leg, decreased range of motion H&P p2 10/18 [facility] [X] There is a 1 cm stage II pressure ulcer to the left buttock H&P p2 10/18 [facility] [X] Decubitus ulcer stage II of left buttock H&P p2 10/18 [facility] [X] Pressure ulcer stage III left buttock, full thickness Wound care 10/20 Av RN [X] Serosanguineous Serous drainage on left buttock Wound care 10/20 Av RN [X] Wound stage: Full thickness Wound care 10/20 Av RN Present Risk Factors Results and Location in Medical Record [X] 74 year-old Male H&P p1 10/18 [facility] [X] HTN H&P p1 10/18 [facility]ery[facility] [X] DM H&P p1 10/18 [facility] [X] 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 H&P p1 [facility] [X] Sepsis H&P p1 10/18 Jer[facility] Present Treatments Results and Location in Medical Record [X] Wound care consult Wound care 10/20 Av RN [X] Barrier wipe Wound care 10/20 Av RN [X] Wound packing Wound care 10/20 Av RN [X] Low Air loss Mattress Wound care 10/20 Av RN [X] Medihoney applied and then covered with composite foam dressing Wound care Av RN CDS/Missile Technician Signature: Dalia Espinosa Phone #: [phone] Date/Time: 10/27/19 0648 PRESSURE ULCER STAGES Stage I: Erythema Stage II: Partial thickness Stage III: Full thickness Stage IV: Necrosis to muscle/bone This is a permanent part of the Medical Record [facility]
--- NOTE | 2019-10-27 15:24 | EKG ---
Test Reason : ROUTINE Blood Pressure : / mmHG Vent. Rate : 051 BPM Atrial Rate : 051 BPM P-R Int : 212 ms QRS Dur : 170 ms QT Int : 496 ms P-R-T Axes : 018 -22 156 degrees QTc Int : 457 ms Sinus bradycardia with 1st degree A-V block with occasional Premature ventricular complexes Left bundle branch block Abnormal ECG No previous ECGs available Confirmed by MELISSA FINCH M.D. ([id number]) on 10/27/2019 3:24:07 PM Referred By: FORREST Confirmed By:MELISSA FINCH M.D.
--- NOTE | 2019-10-27 16:03 | EKG ---
Test Reason : CP Blood Pressure : / mmHG Vent. Rate : 047 BPM Atrial Rate : 047 BPM P-R Int : 218 ms QRS Dur : 166 ms QT Int : 510 ms P-R-T Axes : 043 -26 140 degrees QTc Int : 451 ms Sinus bradycardia with 1st degree A-V block with occasional Premature ventricular complexes Left bundle branch block Abnormal ECG When compared with ECG of 21-OCT-2019 17:42, (Unconfirmed) No significant change was found Confirmed by MELISSA FINCH M.D. ([id number]) on 10/27/2019 4:03:09 PM Referred By: SALOMON Confirmed By:MELISSA FINCH M.D.
== END 2019-10-25 20:07 | DRG 871 ==
LOC: ERS 20:01 → T4-A 20:44 → 2NO 10-22 03:47 → ONC 10-22 22:50
PROVIDERS: ADMIT Internal Medicine; ATTEND Internal Medicine
DX: A41.89 Other specified sepsis (principal); L89.323 Pressure ulcer of left buttock, stage 3; N17.9 Acute kidney failure, unspecified; I69.354 Hemiplegia and hemiparesis following cerebral infarction affecting left non-dominant side; Z20.828 Contact with and (suspected) exposure to other viral communicable diseases; Z66 Do not resuscitate; M10.9 Gout, unspecified; R00.1 Bradycardia, unspecified; E87.6 Hypokalemia; I10 Essential (primary) hypertension; L89.151 Pressure ulcer of sacral region, stage 1; L30.4 Erythema intertrigo; F10.10 Alcohol abuse, uncomplicated; E86.0 Dehydration; D64.9 Anemia, unspecified; R53.81 Other malaise; Z79.899 Other long term (current) drug therapy
CPT/HCPCS: 36415; 80048; 80202; 82553; 83605; 83735; 84145; 84443; 84484; 85025; 87635; 93005; 93010; 93306; 93970; 99285; J0692; J1644; J3370; J3490; J7512; U0003